=== PATIENT | female | born 1995 | race Caucasian/White ===

== ENCOUNTER 2024-09-02 21:44 | Outpatient (REF) | payer MEDICAID, SELFPAY ==
[2024-09-02 21:14] LABS: HCT 38.5 % (36.0-46.0); HGB 13.2 g/dL (11.2-15.7); MCH 29.6 pg (27.0-33.0); MCHC 34.3 % (32.0-36.0); MCV 86 fL (80-95); MPV 10.9 fL (8.0-11.0); Platelet Count 311 10^3/uL (130-400); RBC 4.46 10^6/uL (3.93-5.22); RDW 12.8 % (11.7-14.6); RDW-SD 39.8 fL; WBC 8.01 10^3/uL (4.4-10.8)
[2024-09-02 21:56] LABS: Hemoglobin A1C 5.1 % (<5.7)
[2024-09-02 22:05] LABS: ALT 24 U/L (14-59); AST 23 U/L (15-37); Albumin 4.3 g/dL (3.4-5.0); Alkaline Phosphatase 67 U/L (46-116); Anion Gap 6.7 mmol/L (3-11); BUN 7 mg/dL (7-18); Bilirubin, Total 0.6 mg/dL (0.2-1.0); CO2 29.3 mmol/L (21.0-32.0); CREATININE 0.7 mg/dL (0.55-1.02); Calcium 9.9 mg/dL (8.5-10.1); Calculated LDL 91 mg/dL (<100); Chloride 105 mmol/L (98-107); Cholesterol 154 mg/dL (<200); Estimated GFR 120.74 (mL/min/1.73m2); Glucose 96 mg/dL (74-106); HDL Cholesterol 50 mg/dL (>or=50); Potassium 4.3 mmol/L (3.5-5.1); Sodium 141 mmol/L (136-145); Total Protein 8.4 g/dL (6.4-8.2); Triglyceride 67 mg/dL (<150)
[2024-09-03 08:43] LABS: HCG Quant, Pregnancy 1 mIU/mL (1-3)
== END 2024-09-02 21:45 | disposition home or self-care (01) ==
LOC: NCHCN 21:44
PROVIDERS: Visit Provider Family Medicine
DX: R10.9 Unspecified abdominal pain (principal); N91.2 Amenorrhea, unspecified
CPT/HCPCS: 80053; 80061; 85027; 83036; 84702; 84703

== ENCOUNTER 2024-09-25 15:10 | Outpatient (REF) | payer MEDICAID, SELFPAY ==
[2024-09-25 21:20] LABS: ESR 11 mm/hr (0-20)
[2024-09-25 21:49] LABS: TSH (W/Ref FT4) 1.75 uIU/mL (0.36-3.74)
[2024-09-25 21:50] LABS: C-Reactive Protein < 0.50 mg/dL (<or=0.5)
[2024-09-28 11:46] LABS: IgA 145 mg/dL (85-499); Interpretation (See Note); Tissue Transglutaminase IgA <4.0 CU (<20.0)
== END 2024-09-25 15:11 | disposition home or self-care (01) ==
LOC: NCHCN 15:10
PROVIDERS: Visit Provider Nurse Practitioner Family
DX: K62.5 Hemorrhage of anus and rectum (principal); R53.83 Other fatigue; R10.9 Unspecified abdominal pain
CPT/HCPCS: 82784; 83516; 85652; 84443; 86140

== ENCOUNTER 2024-10-14 18:57 | Outpatient (REF) | payer MEDICAID, SELFPAY ==
[2024-10-15 22:08] LABS: HIV-1/2 Ag & Ab Screen Negative (Negative)
[2024-10-15 23:51] LABS: Hepatitis C Ab w Rflx HCV PCR Negative (Negative)
[2024-10-28 09:42] LABS: Syphilis Serology (RPR) Negative (Negative)
[2024-10-28 09:45] LABS: HSV Type 1 Ab, IgG Negative (Negative); HSV Type 2 Ab, IgG Negative (Negative)
== END 2024-10-14 18:58 | disposition home or self-care (01) ==
LOC: NCHCN 18:57
PROVIDERS: Visit Provider Family Medicine
DX: Z11.3 Encounter for screening for infections with a predominantly sexual mode of transmission (principal); R39.9 Unspecified symptoms and signs involving the genitourinary system
CPT/HCPCS: 81513; 86803; 87389; 87481; 87491; 87591; 87661; 86592; 86695; 86696; 87086

== ENCOUNTER 2024-11-05 09:14 | Outpatient (REF) | payer MEDICAID, SELFPAY ==
--- NOTE | 2024-11-04 16:15 | PAPFT_PTH ---
PATIENT: Mariangel Lucero LOC: [facility] [id number] AGE/SX: 29/F ROOM: RE11/05/[address]: Angelika Escobar : 1995 BED: DIS: 11/05/2024 SPEC #: [id number] RECD: 11/05/24 12:57 STATUS: SALVADOREdson REAnish #: [id number] RAISA: 11/04/24 16:[address]: Angelika Escobar DEPT: [facility] Cytology RECD BY: Karishma Prince ENTERED: 11/05/24 12:58 SP TYPE: PAPFT OT DR: Unknown,Unknown Tissues: 1 - CX/ENDOCX FOR PAP SMEARS Procedures: PAP THIN PREP/[facility] Screening HPV DNA PROBE Comments: [id number] (HPV 16 & 18/45) (CHLAMYDIA/GC)
[2024-11-06 12:24] LABS: Chlamydia Result Negative (Negative); GC Result Negative (Negative)
== END 2024-11-05 09:15 | disposition home or self-care (01) ==
LOC: NCHCN 09:14
PROVIDERS: Visit Provider Nurse Practitioner Family
DX: Z11.51 Encounter for screening for human papillomavirus (HPV) (principal); Z01.419 Encounter for gynecological examination (general) (routine) without abnormal findings; Z11.3 Encounter for screening for infections with a predominantly sexual mode of transmission
CPT/HCPCS: 87491; 87591; 88142; 87624

== ENCOUNTER 2024-11-18 18:18 | Outpatient (REF) | payer MEDICAID, SELFPAY | END 2024-11-18 18:19 | disposition home or self-care (01) | LOC: NCHCN 18:18 | PROVIDERS: Visit Provider Family Medicine | DX: R30.0 Dysuria (principal); B96.29 Other Escherichia coli [E. coli] as the cause of diseases classified elsewhere | CPT/HCPCS: 87077; 87086; 87186 ==

== ENCOUNTER 2025-01-11 16:40 | Outpatient (REF) | payer MEDICAID, SELFPAY | END 2025-01-11 16:41 | disposition home or self-care (01) | LOC: NCHCN 16:40 | PROVIDERS: Visit Provider Nurse Practitioner Family | DX: N39.0 Urinary tract infection, site not specified (principal) | CPT/HCPCS: 87086 ==

== ENCOUNTER 2025-04-27 21:15 | Outpatient (REF) | payer MEDICAID, SELFPAY | END 2025-04-27 21:16 | disposition home or self-care (01) | LOC: NCHCN 21:15 | PROVIDERS: Visit Provider Nurse Practitioner Family | DX: N39.0 Urinary tract infection, site not specified (principal) | CPT/HCPCS: 87077; 87086; 87186 ==

== ENCOUNTER 2025-05-19 21:01 | Outpatient (REF) | payer MEDICAID, SELFPAY ==
[2025-05-21 12:50] LABS: Bacterial Vaginosis (BV) Positive (Negative); Candida glabrata Negative (Negative); Candida species group Negative (Negative); Chlamydia Result Negative (Negative); GC Result Negative (Negative)
== END 2025-05-19 21:02 | disposition home or self-care (01) ==
LOC: NCHCN 21:01
PROVIDERS: Visit Provider Family Medicine
DX: R82.90 Unspecified abnormal findings in urine (principal)
CPT/HCPCS: 81513; 87481; 87491; 87591; 87661; 87086; 87480; 87510; 87660